=== PATIENT | female | born 1980 | race Caucasian/White ===

== ENCOUNTER 2017-08-17 17:57 | Emergency (ER) | payer OTHER ==
[~2017-08-17] VITALS: Ht 160 cm; Wt 70.3 kg
== END 2017-08-17 20:04 | disposition home or self-care (01) ==
LOC: ER 17:57
DX: G44.209 Tension-type headache, unspecified, not intractable (principal)

== ENCOUNTER → 2018-06-03 | Emergency (ER) | payer OTHER ==
[~2018-06-03] VITALS: Ht 170.2 cm; Wt 70.3 kg
== END | disposition home or self-care (01) ==
LOC: ER 14:25
DX: K52.9 Noninfective gastroenteritis and colitis, unspecified (principal)

== ENCOUNTER 2019-03-06 23:30 | Inpatient (IN) | payer OTHER ==
[~2019-03-06] VITALS: Ht 160 cm; Wt 1.4 kg
[2019-03-06] MEDS ORDERED: PRENATABS RX T1 EACH PO (23:49)
[2019-03-06] MEDS ORDERED: FOLIC ACID0.8 M1 PO (23:49)
[2019-03-06] MEDS ORDERED: FE C PLUS TABL1 EACH PO (23:50)
[2019-03-06] MEDS ORDERED: ADRENOID CAPSU1 EACH PO (23:50)
[2019-03-06] MEDS ORDERED: NIFEDIPINE20 MG PO (23:51)
== END 2019-03-09 14:16 | disposition home or self-care (01) | DRG 786 ==
LOC: LDR 23:30 → OB/GYN 23:30
PROVIDERS: ADMIT Specialist
PROC: 4A1HXCZ Monitoring of Products of Conception, Cardiac Rate, External Approach (ICD-10-PCS; 2019-03-06)
PROC: 0UB90ZZ Excision of Uterus, Open Approach (ICD-10-PCS; 2019-03-07)
PROC: 10D00Z1 Extraction of Products of Conception, Low, Open Approach (ICD-10-PCS; principal; 2019-03-07 07:00)
DX: O44.33 Partial placenta previa with hemorrhage, third trimester (principal); O60.14X0 Preterm labor third trimester with preterm delivery third trimester, not applicable or unspecified; O34.13 Maternal care for benign tumor of corpus uteri, third trimester; D25.2 Subserosal leiomyoma of uterus; Z3A.33 33 weeks gestation of pregnancy; Z37.0 Single live birth; Z22.330 Carrier of Group B streptococcus